=== PATIENT | female | born 1950 | race Caucasian/White ===

== ENCOUNTER 2018-08-13 16:25 | Emergency (ER) | payer MEDICARE, BC ==
[2018-08-13 16:30] VITALS: TEMP 98.4
[2018-08-13] MEDS ORDERED: valACYclovir 500 MG TAB PO STA (17:15)
[2018-08-13 17:16] VITALS: BP 102/65; PULSE 85; RESP 16
[2018-08-13] MEDS: predniSONE 50 MG TAB PO STA ×2 (17:35→17:36)
[2018-08-13] MEDS ORDERED: ACET/COD 300 MG/30 MG STARTER PACK 6 TAB BTL PO STA (17:46)
--- NOTE | 2018-08-13 17:50 | ED ---
General Adult HPI - General Chief complaint: Skin/Abscess/Foreign Body Stated complaint: poss shingles Time Seen by Provider: 08/13/18 16:41 Source: patient, RN notes reviewed, old records reviewed Mode of arrival: ambulatory Limitations: no limitations - History of Present Illness Initial comments: 68-year-old female patient presents ED with 1 day of rash and mild pain on her side. Patient reports that rash looks solution was she had approximately 1 years ago. Patient did have chickenpox as a child. Patient states that the rash was first noticed today. Patient reports of mild pain in that region. Patient denies any other complaints today. Denies any chest pains redness of breath abdominal pain, nausea vomiting or diarrhea. Systemic: Pt denies fatigue, fever/chills, rash. Pt denies weakness, night sweats, weight loss. Neuro: Pt denies headache, visual disturbances, syncope or pre-syncope. HEENT: Pt denies ocular discharge or irritation, otalgia, rhinorrhea, pharyngitis or notable lymphadenopathy. Cardiopulmonary: Pt denies chest pain, SOB, heart palpitations, dyspnea on exertion. Abdominal/GI: Pt denies abdominal pain, n/v/d. : Pt denies dysuria, burning w/ urination, frequency/urgency. Denies new onset urinary or bowel incontinence. MSK: Pt denies myalgia, loss of strength or function in extremities. Neuro: Pt denies new onset weakness, paresthesias. - Related Data Home Medications Medication Instructions Recorded Confirmed ALPRAZolam [Xanax] 1 mg PO 10/30/13 10/30/13 Aspirin EC [Ecotrin] 325 mg PO DAILY 10/30/13 10/30/13 Diazepam [Valium] 10/30/13 10/30/13 Estradiol [Vivelle-Dot] 1 patch TRANSDERM Q84H 10/30/13 10/30/13 FLUoxetine HCL [PROzac] 10 mg PO DAILY 10/30/13 10/30/13 Gabapentin [Neurontin] 300 mg PO TID 10/30/13 10/30/13 Ibuprofen [Advil] 200 mg PO Q8HR PRN 10/30/13 10/30/13 Simvastatin [Zocor] 20 mg PO HS 10/30/13 10/30/13 Thyroid,Pork [Mcbain Thyroid] 90 mg PO DAILY 10/30/13 10/30/13 traMADol HCL/ACETAMINOPHEN 1 each PO Q6HR PRN 10/30/13 10/30/13 [Ultracet 37.5-325] Previous Rx's Medication Instructions Recorded Famotidine [Pepcid] 20 mg PO DAILY #3 tablet 10/30/13 valACYclovir HCL [Valtrex] 1,000 mg PO TID #21 tablet 08/13/18 Allergies Allergy/AdvReac Type Severity Reaction Status Date / Time acetaminophen Allergy Unknown Verified 08/13/18 16:30 [From Darvocet-N 100] codeine Allergy Unknown Verified 08/13/18 16:30 duloxetine [Duloxetine] Allergy Unknown Verified 08/13/18 16:30 meperidine HCl [From Demerol] Allergy Unknown Verified 08/13/18 16:30 metaxalone [From Skelaxin] Allergy Unknown Verified 08/13/18 16:30 morphine Allergy Unknown Verified 08/13/18 16:30 naproxen Allergy Unknown Verified 08/13/18 16:30 propoxyphene napsylate Allergy Unknown Verified 08/13/18 16:30 [From Darvocet-N 100] rizatriptan benzoate Allergy Unknown Verified 08/13/18 16:30 [From Maxalt] Sulfa (Sulfonamide Allergy Unknown Verified 08/13/18 16:30 Antibiotics) sumatriptan [From Imitrex] Allergy Unknown Verified 08/13/18 16:30 sumatriptan succinate Allergy Unknown Verified 08/13/18 16:30 [From Imitrex] steroids Allergy Unknown Uncoded 08/13/18 16:31 Review of Systems ROS Statement: Those systems with pertinent positive or pertinent negative responses have been documented in the HPI. ROS Other: All systems not noted in ROS Statement are negative. Past Medical History Past Medical History: Hyperlipidemia, Mitral Valve Prolapse (MVP), Thyroid Disorder Additional Past Medical History / Comment(s): FACIAL NEURALGIA, SCIATICA, FOOT LEFT AND RIGHT FRACTURES, shingles History of Any Multi-Drug Resistant Organisms: None Reported Past Surgical History: Back Surgery, Hysterectomy, Tonsillectomy Past Psychological History: Anxiety, Depression Smoking Status: Never smoker Past Alcohol Use History: Occasional Past Drug Use History: None Reported General Exam - General Exam Comments Initial Comments: Constitutional: NAD, AOX3, Pt has pleasant affect. HEENT: NC/AT, trachea midline, neck supple, no lymphadenopathy. Posterior pharynx non erythematous, without exudates. External ears appear normal, without discharge. Mucous membranes moist. Eyes PERRLA, EOM intact. There is no scleral icterus. No pallor noted. Cardiopulmonary: RRR, no murmurs, rubs or gallops, no JVD noted. Lungs CTAB in anterior and posterior haq. No peripheral edema. Abdominal exam: Abdomen soft and non-distended. Abdomen non-tender to palpation in all 4 quadrants. Bowel sounds active in LLQ. No hepatosplenomegaly. No ecchymosis Neuro: CN II-XII grossly intact. No nuchal rigidity. No raccon eyes, no william sign, no hemotympanum. No cervical spinal tenderness. MSK: No posterior calf tenderness bilaterally, homans sign negative bilaterally. Posterior tibialis and radial pulse +2 bilaterally. Sensation intact in upper and lower extremities. Full active ROM in upper and lower extremities, 5/5 stregnth. Derm: Erythematous rash along the L4 dermatome consistent with early shingles. Does not cross midline. Limitations: no limitations Course Vital Signs 08/13/18 08/13/18 16:26 17:12 Temperature 98.4 F Pulse Rate 102 H 85 Respiratory 18 16 Rate Blood Pressure 99/62 102/65 O2 Sat by Pulse 98 95 Oximetry Medical Decision Making - Medical Decision Making 68-year-old female patient presents ED with 1 day of rash and mild pain on her side. Patient reports that rash looks solution was she had approximately 1 years ago. Patient did have chickenpox as a child. Patient states that the rash was first noticed today. Patient reports of mild pain in that region. Patient denies any other complaints today. Denies any chest pains redness of breath abdominal pain, nausea vomiting or diarrhea. Pt VSS, afebrile. Physical exam displayed: Erythematous rash along the L4 dermatome consistent with early shingles. Does not cross midline. Patient administered 1 dose of Valtrex and ED, declined steroids. Patient was discharged with Valtrex and Tylenol 3 starter pack. Pt denies any kidney issues, states function is at baseline. Patient will follow-up with primary care prior 1-2 days. Patient return to ED if condition worsens in any way. Case discussed with Dr. Teresa. Disposition Clinical Impression: Shingles Disposition: HOME SELF-CARE Condition: Stable Instructions (If sedation given, give patient instructions): Shingles (ED) Additional Instructions: Patient to adhere to previously discussed treatment plan and will take medication(s) as directed. Patient to follow up with PCP in 1-2 days. Patient to return to ED if symptoms do not improve. Take medication as directed. Follow-up with primary care provider in 1-2 days. Return to ER if condition worsens in any way. Prescriptions: valACYclovir HCL [Valtrex] 1,000 mg PO TID #21 tablet Is patient prescribed a controlled substance at d/c from ED?: No Referrals: Abner Edwards DO [Primary Care Provider] - 1-2 days
== END 2018-08-13 17:55 | disposition home or self-care (01) ==
LOC: EC 16:25
DX: B02.9 Zoster without complications (principal); E78.5 Hyperlipidemia, unspecified; E07.9 Disorder of thyroid, unspecified; F32.9 Major depressive disorder, single episode, unspecified; F41.9 Anxiety disorder, unspecified; Z79.82 Long term (current) use of aspirin; Z79.899 Other long term (current) drug therapy; Z53.29 Procedure and treatment not carried out because of patient's decision for other reasons; Z88.5 Allergy status to narcotic agent; Z88.2 Allergy status to sulfonamides; Z88.6 Allergy status to analgesic agent; Z88.8 Allergy status to other drugs, medicaments and biological substances
CPT/HCPCS: 99283

== ENCOUNTER → 2021-08-09 | Outpatient (CLI) | payer MEDICARE ==
[2021-08-09 22:58] LABS: T4, Free (Free Thyroxine) 1.56 ng/dL (0.800-1.800)
== END | disposition home or self-care (01) ==
LOC: LABWHC1 15:49
PROVIDERS: ATTEND Internal Medicine Endocrinology, Diabetes & Metabolism
DX: E03.9 Hypothyroidism, unspecified (principal)
CPT/HCPCS: 36415; 84439; 84443

== ENCOUNTER → 2021-10-12 | Outpatient (CLI) | payer MEDICARE ==
--- NOTE | 2021-10-12 13:44 | US ---
EXAMINATION TYPE: US kidneys/renal and bladder DATE OF EXAM: 10/12/2021 COMPARISON: NONE CLINICAL HISTORY: CKD 3A N18.9. abn renal function EXAM MEASUREMENTS: Right Kidney: 7.8 x 4.0 x 4.6 cm Left Kidney: 10.5 x 5.3 x 4.9 cm Right Kidney: wnl Left Kidney: wnl Bladder: wnl Bilateral Jets seen: yes There is no evidence for hydronephrosis at this point in time. No nephrolithiasis is seen. No neli s are identified. The urinary bladder is anechoic. Bilateral ureteral jets are seen. IMPRESSION: No evidence of obstructive uropathy.
[2021-10-12 13:59] LABS: HCT 39.2 % (34.0-46.0); HGB 13.2 gm/dL (11.4-16.0); MCH 35.1 pg (25.0-35.0); MCHC 33.8 g/dL (31.0-37.0); MCV 103.9 fL (80.0-100.0); Macrocytosis Slight; Mean Platelet Volume 11.1; Platelet Count 132 k/uL (150-450); RBC 3.77 m/uL (3.80-5.40); RDW 14.4 % (11.5-15.5); WBC 3.2 k/uL (3.8-10.6)
[2021-10-12 15:44] LABS: Lymphocytes # (M) 1.47 k/uL (1.0-4.8); Monocytes # (M) 0.42 k/uL (0-1.0); Neutrophils # (M) 1.31 k/uL (1.3-7.7); Neutrophils % (M) 41 %; Nucleated Red Blood Cells 0 /100 WBC (0-0); Total Cells Counted 100
[2021-10-12 15:46] LABS: Poikilocytosis (M) Present; Stomatocytes Present
[2021-10-12 19:28] LABS: African American GFR (CKD) 65.2 (60.0-200.0); Magnesium 2.1 mg/dL (1.5-2.4); Non-African American GFR(CKD) 56.2 (60.0-200.0); Phosphorus 2.7 mg/dL (2.4-5.1)
== END | disposition home or self-care (01) ==
LOC: RADUSWWP 12:28
PROVIDERS: ATTEND Family Medicine
DX: N18.31 Chronic kidney disease, stage 3a (principal)
CPT/HCPCS: 76770; 82043; 82306; 82565; 82570; 83735; 83970; 84100; 85025

== ENCOUNTER 2022-10-23 15:36 | Emergency (ER) | payer MEDICARE ==
--- NOTE | 2022-10-23 17:51 | CT ---
EXAMINATION TYPE: CT pelvis wo con DATE OF EXAM: 10/23/2022 COMPARISON: None HISTORY: bilateral hip pain CT DLP: 1173 mGycm Automated exposure control for dose reduction was used. Unenhanced CT of the pelvis was performed in the axial, coronal and sagittal planes. Lack of contrast limits evaluation of the pelvic viscera. FINDINGS: There is no evidence of fracture or dislocation. Severe degenerative disc disease with vacuum disc L5 -S1. Vacuum changes of the bilateral sacroiliac joints. Sacral alae are symmetric. No sacral fracture . Hips straight mild degenerative joint space narrowing. No evidence for displaced or impacted fractu re of the hips. No pelvic masses. Hysterectomy changes. IMPRESSION: NO ACUTE DISPLACED FRACTURE OR DISLOCATION OF THE PELVIS.
--- NOTE | 2022-10-23 17:57 | CT ---
EXAMINATION TYPE: CT lumbar spine wo con DATE OF EXAM: 10/23/2022 5:45 PM COMPARISON: None HISTORY: low back pain CT DLP: 3.2 mGycm Automated exposure control for dose reduction was used. Unenhanced CT of the lumbar spine was performed. Bone and soft tissue window settings are submitted as well as coronal and sagittal reconstructions. L1-L2: Moderate degenerative disc space narrowing. Pedicular screws are in place. Alignment is anatom ic. No disc herniation protrusion or central stenosis. No facet joint arthropathy. No evidence for foraminal encroachment. L2-L3: Moderate degenerative disc space narrowing. Pedicular screws are in place. Alignment is anatom ic. No disc herniation protrusion or central stenosis. No facet joint arthropathy. No evidence for foraminal encroachment. L3-L4: Postoperative changes of decompressive laminectomy. Stabilizing pedicular screws. Grade 1 ante rolisthesis L3 on L4 measuring 4.2 mm. No obvious recurrent disease. Lack of contrast is limiting. L4-L5: Decompressive laminectomy and fusion. Pedicular screws are in place. Alignment is near-anatomi c.No obvious recurrent disease. Lack of contrast is limiting. L5-S1: Pedicular screws are in place. There is evidence of vacuum disc. Moderate posterior disc bulge with effacement of the ventral thecal sac and bilateral lateral recess stenosis and central stenosis noted. Mild bilateral foraminal encroachment. IMPRESSION: 1. Multilevel degenerative disc disease as discussed above with postoperative decompressive laminecto my and pedicular screw placement. 2. Moderate central stenosis at L5-S1.
--- NOTE | 2022-10-23 19:39 | ED ---
General Adult HPI - General Chief complaint: Back Pain/Injury Stated complaint: low back/hip pain Time Seen by Provider: 10/23/22 16:32 Source: patient, RN notes reviewed Mode of arrival: wheelchair Limitations: no limitations - History of Present Illness Initial comments: 72-year-old female presents to the emergency department with chief complaint of right-sided low back pain that started 3 days ago when she was getting off the toilet. She states that she stood up and twisted and felt like she heard a "pop" she reports multiple prior spinal fusions. She states that she had a spinal stimulator placed in the past which is not active currently. She takes hydrocodone, naproxen, and lidocaine patches for her pain. She reports that this regimen helps temporarily. Denies loss of bowel or bladder function, urinary retention, fever, chills, saddle anesthesia, radiation of pain. - Related Data Home Medications Medication Instructions Recorded Confirmed ALPRAZolam [Xanax] 1 mg PO 10/30/13 10/30/13 Aspirin EC [Ecotrin] 325 mg PO DAILY 10/30/13 10/30/13 FLUoxetine HCL [PROzac] 10 mg PO DAILY 10/30/13 10/30/13 Gabapentin [Neurontin] 300 mg PO TID 10/30/13 10/30/13 Ibuprofen [Advil] 200 mg PO Q8HR PRN 10/30/13 10/30/13 Simvastatin [Zocor] 20 mg PO HS 10/30/13 10/30/13 Thyroid,Pork [Porum Thyroid] 90 mg PO DAILY 10/30/13 10/30/13 diazePAM [Valium] 10/30/13 10/30/13 estradioL [Vivelle-Dot] 1 patch TRANSDERM Q84H 10/30/13 10/30/13 traMADol HCL/ACETAMINOPHEN 1 each PO Q6HR PRN 10/30/13 10/30/13 [Ultracet 37.5-325] Previous Rx's Medication Instructions Recorded Famotidine [Pepcid] 20 mg PO DAILY #3 tablet 10/30/13 valACYclovir HCL [Valtrex] 1,000 mg PO TID #21 tablet 08/13/18 Allergies Allergy/AdvReac Type Severity Reaction Status Date / Time acetaminophen Allergy Unknown Verified 08/13/18 16:30 [From Darvocet-N 100] codeine Allergy Unknown Verified 08/13/18 16:30 duloxetine [Duloxetine] Allergy Unknown Verified 08/13/18 16:30 meperidine HCl [From Demerol] Allergy Unknown Verified 08/13/18 16:30 metaxalone [From Skelaxin] Allergy Unknown Verified 08/13/18 16:30 morphine Allergy Unknown Verified 08/13/18 16:30 naproxen Allergy Unknown Verified 08/13/18 16:30 propoxyphene napsylate Allergy Unknown Verified 08/13/18 16:30 [From Darvocet-N 100] rizatriptan benzoate Allergy Unknown Verified 08/13/18 16:30 [From Maxalt] Sulfa (Sulfonamide Allergy Unknown Verified 08/13/18 16:30 Antibiotics) sumatriptan [From Imitrex] Allergy Unknown Verified 08/13/18 16:30 sumatriptan succinate Allergy Unknown Verified 08/13/18 16:30 [From Imitrex] steroids Allergy Unknown Uncoded 08/13/18 16:31 Review of Systems ROS Statement: Those systems with pertinent positive or pertinent negative responses have been documented in the HPI. ROS Other: All systems not noted in ROS Statement are negative. Past Medical History Past Medical History: Hyperlipidemia, Mitral Valve Prolapse (MVP), Thyroid Disorder Additional Past Medical History / Comment(s): FACIAL NEURALGIA, SCIATICA, FOOT LEFT AND RIGHT FRACTURES, shingles History of Any Multi-Drug Resistant Organisms: None Reported Past Surgical History: Back Surgery, Hysterectomy, Tonsillectomy Past Psychological History: Anxiety, Depression Past Alcohol Use History: Occasional Past Drug Use History: None Reported General Exam Limitations: no limitations General appearance: alert, in no apparent distress Head exam: Present: atraumatic, normocephalic, normal inspection Eye exam: Present: normal appearance, PERRL, EOMI. Absent: scleral icterus, conjunctival injection, periorbital swelling ENT exam: Present: normal exam, mucous membranes moist Neck exam: Present: normal inspection. Absent: tenderness, meningismus, lymphadenopathy Respiratory exam: Present: normal lung sounds bilaterally. Absent: respiratory distress, wheezes, rales, rhonchi, stridor Cardiovascular Exam: Present: regular rate, normal rhythm, normal heart sounds. Absent: systolic murmur, diastolic murmur, rubs, gallop, clicks GI/Abdominal exam: Present: soft, normal bowel sounds. Absent: distended, tenderness, guarding, rebound, rigid Extremities exam: Present: normal inspection, full ROM, normal capillary refill, other (5/5 strength in lower extremities, DP and PT pulses 2+). Absent: te nderness, pedal edema, joint swelling, calf tenderness Back exam: Present: tenderness, paraspinal tenderness. Absent: CVA tenderness (R), CVA tenderness (L), muscle spasm Neurological exam: Present: alert, oriented X3 Psychiatric exam: Present: normal affect, normal mood Skin exam: Present: warm, dry, intact, normal color. Absent: rash Course Vital Signs 10/23/22 10/23/22 15:54 20:24 Temperature 97.8 F 97.9 F Pulse Rate 79 63 Respiratory 20 18 Rate Blood Pressure 90/60 113/74 O2 Sat by Pulse 98 96 Oximetry Medical Decision Making - Medical Decision Making Was pt. sent in by a medical professional or institution (, PA, TRANSPORTER [employer], urgent care, hospital, or correction...) When possible be specific @ -No Did you speak to anyone other than the patient for history (EMS, parent, family, police, friend...)? What history was obtained from this source @ -No Did you review nursing and triage notes (agree or disagree)? Why? @ -I reviewed and agree with nursing and triage notes Were old charts reviewed (outside hosp., previous admission, EMS record, old EKG, old radiological studies, urgent care reports/EKG's, correction records)? Report findings @ -No old charts were reviewed Differential Diagnosis (chest pain, altered mental status, abdominal pain women, abdominal pain men, vaginal bleeding, weakness, fever, dyspnea, syncope, headache, dizziness, GI bleed, back pain, seizure, CVA, palpatations, mental health, musculoskeletal)? @ -Differential Back Pain: Strain, zoster, cauda equina syndrome, epidural abscess, vertebral osteomyelitis, discitis, fracture, subluxation, disc herniation, DJD, spinal stenosis, dissection, AAA, pancreatitis, peptic ulcer disease, pyelonephritis, kidney stone, this is not meant to be an all-inclusive list. EKG interpreted by me (3pts min.). @ -none X-rays interpreted by me (1pt min.). @ -None done CT interpreted by me (1pt min.). @ -CT lumbar spine and pelvis showed No evidence for acute fracture, moderate central stenosis at L5-S1, postoperative changes U/S interpreted by me (1pt. min.). @ -None done What testing was considered but not performed or refused? (CT, X-rays, U/S, labs)? Why? @ -None What meds were considered but not given or refused? Why? @ -None Did you discuss the management of the patient with other professionals (professionals i.e. , PA, [employer], lab, RT, psych nurse, social service director, nurse research, teacher, veterinary medical officer, geriatric case manager)? Give summary @ -No Was smoking cessation discussed for >3mins.? @ -No Was critical care preformed (if so, how long)? @ -No Were there social determinants of health that impacted care today? How? (Homelessness, low income, unemployed, alcoholism, drug addiction, transportation, low edu. Level, literacy, decrease access to med. care, group home, rehab)? @ -No Was there de-escalation of care discussed even if they declined (Discuss DNR or withdrawal of care, Hospice)? DNR status @ -No What co-morbidities impacted this encounter? (DM, HTN, Smoking, COPD, CAD, Cancer, CVA, ARF, Chemo, Hep., AIDS, mental health diagnosis, sleep apnea, morbid obesity)? @ -None Was patient admitted / discharged? Hospital course, mention meds given and route, prescriptions, significant lab abnormalities, going to OR and other pertinent info. @ -Discharged. Patient presented to emergency department chief complaint of back pain and right-sided pelvic/hip pain. She states that she was getting off the toilet on Saturday and stood up and twisted when she suddenly had pain in her low back and hip that is worse than her usual pain. Denies any red flag symptoms at this time including saddle anesthesia, urinary retention, loss of bowel or bladder function, fever. Patient has a history of chronic back pain and has had multiple procedures including spinal fusion and laminectomy. She has a spinal cord stimulator in place which is currently off she states that it doesn't work. She is taking naproxen, hydrocodone, gabapentin, lidocaine patches for her pain at home. She states that this helps temporarily but this pain is worse than her typical pain. CT lumbar spine and pelvis show no evidence for acute fracture, moderate central stenosis at L5-S1 which the patient is aware of. No obvious acute changes to explain the patient's symptoms. Patient has a neurosurgeon, PM&R that she follows with. Patient has no neuro deficits, 5 out of 5 strength in lower extremities, is able to ambulate. Patient will be discharged and advised to follow-up with her care team. Patient stable at time of discharge. Case discussed with my attending, Dr. Teresa Undiagnosed new problem with uncertain prognosis? @ -No Drug Therapy requiring intensive monitoring for toxicity (Heparin, Nitro, Insulin, Cardizem)? @ -No Were any procedures done? @ -No Diagnosis/symptom? @ -low back pain Acute, or Chronic, or Acute on Chronic? @ -acute Uncomplicated (without systemic symptoms) or Complicated (systemic symptoms)? @ -uncomplicated Side effects of treatment? @ -No Exacerbation, Progression, or Severe Exacerbation? @ -No Poses a threat to life or bodily function? How? (Chest pain, USA, IA, pneumonia, PE, COPD, DKA, ARF, appy, cholecystitis, CVA, Diverticulitis, Homicidal, Suicidal, threat to staff... and all critical care pts) @ -No Disposition Clinical Impression: Strain of lumbar region Disposition: HOME SELF-CARE Condition: Stable Instructions (If sedation given, give patient instructions): Acute Low Back Pain (ED) Additional Instructions: Continue your current regimen for pain. Follow up with your primary care provider, PM&R, and neurosurgeon as needed. Return to the emergency department for new or worsening symptoms. Is patient prescribed a controlled substance at d/c from ED?: No Referrals: Abner Edwards DO [Primary Care Provider] - 1-2 days Time of Disposition: 19:38
[2022-10-23 20:26] VITALS: BP 113/74; PULSE 63; RESP 18; TEMP 97.9
== END 2022-10-23 20:32 | disposition home or self-care (01) ==
LOC: EC 15:36
DX: S33.5XXA Sprain of ligaments of lumbar spine, initial encounter (principal); E78.5 Hyperlipidemia, unspecified; E07.9 Disorder of thyroid, unspecified; F41.9 Anxiety disorder, unspecified; F32.A Depression, unspecified; Z88.5 Allergy status to narcotic agent; Z88.8 Allergy status to other drugs, medicaments and biological substances; Z79.82 Long term (current) use of aspirin; Z79.899 Other long term (current) drug therapy; X50.9XXA Other and unspecified overexertion or strenuous movements or postures, initial encounter
CPT/HCPCS: 72131; 72192; 99283

== ENCOUNTER → 2023-11-20 | Outpatient (CLI) | payer MEDICARE | LOC: LABWHC1 14:22 | PROVIDERS: ATTEND Psychiatry & Neurology Neurology | DX: G60.8 Other hereditary and idiopathic neuropathies (principal) | CPT/HCPCS: 36415; 82607 ==

== ENCOUNTER → 2023-11-20 | Outpatient (CLI) | payer MEDICARE ==
--- NOTE | 2023-11-20 15:34 | CT ---
EXAMINATION TYPE: CT brain wo con DATE OF EXAM: 11/20/2023 COMPARISON: None HISTORY: 73-year-old female Normal pressure hydrocephalus, difficulty walking TECHNIQUE: Examination was done in axial plane without intravenous contrast. Coronal and sagittal r econstructions performed. CT DLP: 1269 mGycm Automated exposure control for dose reduction was used. FINDINGS: There is no evidence of acute intracranial hemorrhage, acute ischemic changes, mass, mass-effect, or extra-axial fluid collection. There is no effacement of cerebral sulci or basal subarachnoid cister ns. There is mild ventriculomegaly, Friend ratio calculated at 0.34. There is no midline shift. Gonzáles-white matter distinction is preserved. Mild patchy periventricular white matter hypodensities. Partially empty sella. Paranasal sinuses and mastoid air cells well pneumatized. Orbits and globes are intact. Severe degene rative change right TMJ. IMPRESSION: 1. Mild ventriculomegaly, Max's ratio calculated at 0.34. Equivocal between central cerebral atrophy versus a component of NPH. 2. Mild patchy burden of chronic small vessel ischemic disease. No acute intracranial abnormality see n. 3. Incidental severe right TMJ OA. [facility], , 11/20/2023 3:31 PM
== END | disposition home or self-care (01) ==
LOC: RADCTMAIN 13:43
PROVIDERS: ATTEND Psychiatry & Neurology Neurology
DX: G91.2 (Idiopathic) normal pressure hydrocephalus
CPT/HCPCS: 70450